=== PATIENT | female | born 1990 | race Asian ===

== ENCOUNTER 2017-07-11 19:40 | Outpatient (CLI) | payer MEDICAID ==
[2017-07-11] MEDS: ACETAMINOPHEN 500 MG TAB PO (20:38)
[2017-07-11 20:39] LABS: ADD UMIC NO; UR ASCORBIC ACID NEGATIVE (NEGATIVE); UR BILIRUBIN (Dip) NEGATIVE (NEGATIVE); UR BLOOD (Dip) NEGATIVE (NEGATIVE); UR CLARITY CLEAR (CLEAR); UR COLOR COLORLESS (YELLOW); UR GLUCOSE (Dip) NEGATIVE (NEGATIVE); UR KETONES (Dip) NEGATIVE (NEGATIVE); UR LEUKOCYTE ESTERASE (Dip) NEGATIVE Leu/ul (NEGATIVE); UR NITRITE (Dip) NEGATIVE (NEGATIVE); UR SPECIFIC GRAVITY (Dip) 1.001 (1.003-1.030); UR TOTAL PROTEIN (Dip) NEGATIVE (NEGATIVE); UR UROBILINOGEN (Dip) NEGATIVE (NEGATIVE)
== END 2017-07-11 22:22 | disposition home or self-care (01) ==
LOC: OBT 19:40 → L-D 19:44 → OBT 22:22
DX: O62.9 Abnormality of forces of labor, unspecified (principal); Z3A.26 26 weeks gestation of pregnancy
CPT/HCPCS: 76817; 81003; 82731; 87086

== ENCOUNTER 2017-09-16 15:55 | Outpatient (CLI) | payer MEDICAID | END 2017-09-16 17:45 | disposition home or self-care (01) | LOC: OBT 15:55 → L-D 15:58 → OBT 17:45 | DX: O24.410 Gestational diabetes mellitus in pregnancy, diet controlled (principal); Z3A.35 35 weeks gestation of pregnancy | CPT/HCPCS: 76818; 82962 ==

== ENCOUNTER 2017-09-28 15:05 | Outpatient (CLI) | payer MEDICAID ==
[2017-09-28] MEDS: LACTATED RINGER'S 1,000 ML IV (16:55)
[2017-09-28] MEDS ORDERED: LACTATED RINGER'S 1,000 ML IV (18:00)
== END 2017-09-28 21:27 | disposition home or self-care (01) ==
LOC: OBT 15:05 → L-D 15:08 → OBT 21:27
DX: O62.9 Abnormality of forces of labor, unspecified (principal); Z3A.37 37 weeks gestation of pregnancy
CPT/HCPCS: 36415; 76815; 96360; 96361

== ENCOUNTER 2017-10-18 08:01 | Inpatient (IN) | payer MEDICAID ==
[2017-10-18] MEDS: LACTATED RINGER'S 1,000 ML IV ×3 (09:41→14:35)
[2017-10-18 09:57] LABS: ADD MAN DIFF? NO
[2017-10-18] MEDS ORDERED: FENTAnyl 2MCG/ML-ROPIV 0.2% 100 ML (09:59)
[2017-10-18 10:00] LABS: BASOPHILS % 0.2 % (0.0-2.0); EOSINOPHILS # 0.1 10^3/ul (0.0-0.5); EOSINOPHILS % 1.2 % (0.0-7.0); HEMATOCRIT 35.1 % (37.0-47.0); HEMOGLOBIN 11.8 g/dl (12.0-16.0); MEAN CORPUSCULAR HEMOGLOBIN 31.1 pg (29.0-33.0); MEAN CORPUSCULAR HGB CONC 33.6 g/dl (32.0-37.0); MEAN CORPUSCULAR VOLUME 92.4 fl (82.0-101.0); MEAN PLATELET VOLUME 10.8 fl (7.4-10.4); MONOCYTE # 0.8 10^3/ul (0.3-0.9); NEUTROPHILS % 72.9 % (39.0-77.0); PLATELET COUNT 200 10^3/UL (140-415); RED CELL DISTRIBUTION WIDTH 12.6 % (11.5-14.5)
[2017-10-18] MEDS ORDERED: LIDOCAINE 1% (MPF) 30 ML INJ INJ (10:00)
[2017-10-18] MEDS ORDERED: METHYLERGONOVINE 0.2 MG INJ IM (10:00)
[2017-10-18] MEDS ORDERED: MISOPROSTOL 200 MCG TAB PR (10:00)
[2017-10-18] MEDS ORDERED: CARBOPROST 250 MCG INJ IM (10:00)
[2017-10-18] MEDS ORDERED: OXYTOCIN 30 UNITS/LR 500 ML IV ×3 (10:00→11:30)
[2017-10-18 10:20] LABS: INR 0.88; PARTIAL THROMBOPLASTIN TIME 29.2 Sec (25.0-35.0); PT RATIO 0.9
[2017-10-18] MEDS ORDERED: NALOXONE (0.4 MG/ML) INJ IV (10:30)
[2017-10-18 11:33] LABS: GLUCOSE 114 mg/dl (70-220)
[2017-10-18 15:03] LABS: RAPID PLASMA REAGIN NONREACTIVE (NR)
[2017-10-18] MEDS: DEXTROSE 5%-LR 1,000 ML IV (16:44)
[2017-10-18] MEDS: OXYTOCIN 30 UNITS/LR 500 ML IV ×3 (17:32→22:32)
[2017-10-18] MEDS: FENTAnyl 2MCG/ML-ROPIV 0.2% 100 ML BAG EPI (20:20)
[2017-10-18] MEDS ORDERED: LANOLIN 7 GM TUBE TOP (21:30)
[2017-10-18] MEDS ORDERED: HYDROCODONE/APAP (5/325) TAB PO (21:30)
[2017-10-18] MEDS ORDERED: OXYCODONE/ASPIRIN (4.88/325) TAB PO ×2 (21:30)
[2017-10-18] MEDS ORDERED: ACETAMINOPHEN 325 MG TAB PO (21:30)
[2017-10-18] MEDS ORDERED: ONDANSETRON 4 MG INJ IV (21:30)
[2017-10-18] MEDS: WITCH HAZEL/GLYCERIN PAD PR (21:47)
[2017-10-18] MEDS: BENZOCAINE 20% 56 ML SPRAY TOP (21:47)
[2017-10-18] MEDS: HYDROCODONE/APAP (5/325) TAB PO (21:48)
[2017-10-19] MEDS: IBUPROFEN 600 MG TAB PO ×5 (00:30→23:36)
[2017-10-19] MEDS: SENNA/DOCUSATE NA (8.6MG/50MG) TAB PO ×2 (09:04→20:53)
[2017-10-19 09:11] LABS: ADD MAN DIFF? NO
[2017-10-19 09:13] LABS: WHITE BLOOD COUNT 12.9 10^3/ul (4.8-10.8)
[2017-10-19 09:13] LABS: BASOPHILS % 0.2 % (0.0-2.0); EOSINOPHILS # 0.1 10^3/ul (0.0-0.5); EOSINOPHILS % 0.6 % (0.0-7.0); HEMATOCRIT 29.1 % (37.0-47.0); HEMOGLOBIN 9.6 g/dl (12.0-16.0); LYMPHOCYTES # 1.4 10^3/ul (0.8-2.9); LYMPHOCYTES % 11.1 % (15.0-51.0); MEAN CORPUSCULAR HEMOGLOBIN 30.9 pg (29.0-33.0); MEAN CORPUSCULAR VOLUME 93.6 fl (82.0-101.0); MEAN PLATELET VOLUME 10.3 fl (7.4-10.4); MONOCYTE # 1.1 10^3/ul (0.3-0.9); MONOCYTES % 8.4 % (0.0-11.0); NEUTROPHIL # 10.3 10^3/ul (1.6-7.5); NEUTROPHILS % 79.2 % (39.0-77.0); PLATELET COUNT 175 10^3/UL (140-415); RED BLOOD COUNT 3.11 10^6/ul (4.20-5.40); RED CELL DISTRIBUTION WIDTH 12.9 % (11.5-14.5)
[2017-10-19] MEDS: HYDROCODONE/APAP (5/325) TAB PO ×2 (09:14→19:36)
[2017-10-20] MEDS: IBUPROFEN 600 MG TAB PO ×2 (05:49→11:39)
[2017-10-20] MEDS: HYDROCODONE/APAP (5/325) TAB PO (07:36)
[2017-10-20] MEDS: MEASLES,MUMPS,RUBELLA VACCINE INJ SC* (09:00)
[2017-10-20] MEDS: SENNA/DOCUSATE NA (8.6MG/50MG) TAB PO (09:34)
[2017-10-20] MEDS: DIBUCAINE 1% 30 GM OINT PR (11:39)
[2017-10-20] MEDS: WITCH HAZEL/GLYCERIN PAD PR (14:48)
[2017-10-20] MEDS: BENZOCAINE 20% 56 ML SPRAY TOP (14:49)
== END 2017-10-20 15:45 | disposition home or self-care (01) | DRG 775 ==
LOC: OBT 08:01 → L-D 08:01 → OBT 09:20 → L-D 09:20 → PP1 21:09
PROVIDERS: Obstetrics & Gynecology
PROC: 10E0XZZ Delivery of Products of Conception, External Approach (ICD-10-PCS; principal; 2017-10-18)
PROC: 0KQM0ZZ Repair Perineum Muscle, Open Approach (ICD-10-PCS; 2017-10-18)
PROC: 3E033VJ Introduction of Other Hormone into Peripheral Vein, Percutaneous Approach (ICD-10-PCS; 2017-10-18)
DX: O69.81X0 Labor and delivery complicated by cord around neck, without compression, not applicable or unspecified (principal); O48.0 Post-term pregnancy; Z3A.40 40 weeks gestation of pregnancy; O70.1 Second degree perineal laceration during delivery; O24.429 Gestational diabetes mellitus in childbirth, unspecified control; Z37.0 Single live birth
CPT/HCPCS: 62319; 76815; 76818; 82947; 82962; 85025; 85610; 85730; 86592; 86850; 86900; 86901; 88307; 96372; 99464